=== PATIENT | female | born 1935 | race Caucasian/White ===

== ENCOUNTER 2017-08-21 11:33 | Day surgery (SDC) | payer OTHER ==
[2017-08-21] MEDS ORDERED: TETRACAINE 0.5% OPHTH 1 DOSE AFFEYE ONE ×2 (12:48→13:50)
[2017-08-21] MEDS ORDERED: ALPHAGAN-P OPHTH 1 DOSE AFFEYE ONE (12:49)
[2017-08-21 14:46] VITALS: BP 138/71
== END 2017-08-21 14:15 | disposition home or self-care (01) ==
LOC: SURG1 11:33
PROVIDERS: ATTEND Ophthalmology
PROC: 08QC3ZZ Repair Right Iris, Percutaneous Approach (ICD-10-PCS; principal; 2017-08-21 21:15)
DX: H40.1410 Capsular glaucoma with pseudoexfoliation of lens, right eye, stage unspecified (principal)
CPT/HCPCS: 65855